=== PATIENT | female | born 1950 | race Caucasian/White ===

== ENCOUNTER 2017-11-10 11:25 | Outpatient (CLI) | payer MEDICARE, OTHER | END 2017-11-10 11:26 | disposition home or self-care (01) | LOC: BICMAMMO 11:25 | PROVIDERS: ATTEND Family Medicine | DX: Z12.31 Encounter for screening mammogram for malignant neoplasm of breast (principal) | CPT/HCPCS: 77063; 77067 ==

== ENCOUNTER 2018-03-06 20:00 | Outpatient (CLI) | payer MEDICARE, OTHER | END 2018-03-06 20:01 | disposition home or self-care (01) | LOC: SLEEPLAB 20:00 | PROVIDERS: ATTEND Family Medicine | DX: G47.33 Obstructive sleep apnea (adult) (pediatric) (principal); G47.52 REM sleep behavior disorder; R06.3 Periodic breathing; G25.81 Restless legs syndrome; G47.00 Insomnia, unspecified | CPT/HCPCS: 95810 ==

== ENCOUNTER 2018-07-11 10:19 | Outpatient (CLI) | payer MEDICARE ==
--- NOTE | 2018-07-11 13:04 | BD ---
BONE DENSITOMETRY USING DEXA: HISTORY: Postmenopausal screening for osteoporosis. FINDINGS: Lumbar Spine: BMD (g/cm2) L1 0.900 T-Score: -0.8 Z-Score: 0.8 L2 0.980 T-Score: -0.4 Z-Score: 1.4 L3 0.931 T-Score: -1.4 Z-Score: 0.5 L4 0.974 T-Score: -0.8 Z-Score: 1.2 L1-L4 0.947 T-Score: -0.9 Z-Score: 0.9 Femoral Neck: 0.609 T-Score: -2.2 Z-Score: -0.6 Total Femur: 0.702 T-Score: -2.0 Z-Score: -0.7 The 10-year fracture risk for a major osteoporotic fracture is 10% and for a hip fracture is 1.8%. Impression: Osteopenia. POS: [facility]
== END 2018-07-11 10:20 | disposition home or self-care (01) ==
LOC: BICMAMMO 10:19
PROVIDERS: ATTEND Family Medicine
DX: Z13.820 Encounter for screening for osteoporosis (principal); M85.89 Other specified disorders of bone density and structure, multiple sites
CPT/HCPCS: 77080

== ENCOUNTER 2018-09-05 06:45 | Outpatient (CLI) | payer MEDICARE ==
[2018-09-05 12:53] LABS: Hemoglobin 12.5 g/dL (12.0-16.0); Mean Corpuscular HGB CONC 32.5 g/dL (32.0-36.0); Mean Corpuscular Hemoglobin 31.3 pg (27.0-31.0); Mean Corpuscular Volume 96.4 fL (78.0-98.0); Mean Platelet Volume 7.3 fL (7.4-10.4); Platelet Count 227 thou/uL (130-400); Red Blood Cell (RBC) Count 3.98 mill/uL (4.20-5.40); White Blood Cell (WBC) Count 4.3 thou/uL (4.8-10.8)
[2018-09-05 13:12] LABS: Anion Gap 12 mmol/L (10-20); BUN (Urea Nitrogen) 18 mg/dL (9.8-20.1); Calc. Creatinine Clearance 0 mL/min (70-130); Carbon Dioxide 29 mmol/L (23-31); Chloride 105 mmol/L (98-107); Estimated GFR-MDRD 55; Glucose 103 mg/dL (80-115); Potassium 4.6 mmol/L (3.5-5.1); Sodium 141 mmol/L (136-145)
== END 2018-09-05 06:46 | disposition home or self-care (01) ==
LOC: LABBT 06:45
PROVIDERS: ATTEND Neurological Surgery
DX: Z01.818 Encounter for other preprocedural examination (principal)
CPT/HCPCS: 80048; 85027; 93005; 93010

== ENCOUNTER 2018-09-18 06:32 | Day surgery (SDC) | payer MEDICARE ==
[2018-09-05 12:05] VITALS: BMI 20.3
[2018-09-18] MEDS ORDERED: Scopolamine 1.5 mg/72 hour Patch ONE (06:58)
[2018-09-18] MEDS ORDERED: CEFAZOLIN 2 GM/50 ML BAG ONE (07:49)
[2018-09-18] MEDS ORDERED: KETAMINE 100 MG/ML (5ML VIAL) ONE (08:17)
[2018-09-18] MEDS ORDERED: Propofol 500 MG/50 ML VIAL ONE (08:17)
[2018-09-18] MEDS ORDERED: Fentanyl 100 MCG/2 ML VIAL ONE ×2 (08:23→10:16)
[2018-09-18] MEDS ORDERED: Midazolam HCl 2 mg/2 ml Vial ONE (08:33)
[2018-09-18] MEDS ORDERED: Promethazine HCl 25 MG/ML VIAL ONE (11:52)
[2018-09-18] MEDS ORDERED: Ondansetron PF 4 MG/2 ML Vial ONE ×2 (12:03→14:10)
[2018-09-18] MEDS ORDERED: Glycopyrrolate 0.2 MG/ML 5 ML SYRINGE ONE ×2 (14:10)
[2018-09-18] MEDS ORDERED: PROPOFOL 200 MG/20 ML VIAL ONE (14:10)
[2018-09-18] MEDS ORDERED: Ketorolac Tromethamine 30 MG/ML VIAL ONE (14:10)
[2018-09-18] MEDS ORDERED: Dexamethasone 20 MG/5 ML VIAL ONE (14:10)
[2018-09-18] MEDS ORDERED: Lidocaine 1% PF 5 ML VIAL ONE (14:10)
[2018-09-18] MEDS ORDERED: Rocuronium Bromide 10 MG/ML (10ML VIAL) ONE (14:10)
[2018-09-18] MEDS ORDERED: Metoclopramide HCl 10 MG/2 ML VIAL ONE (14:14)
[2018-09-18] MEDS ORDERED: traMADol HCl 50 MG TAB ONE (15:22)
--- NOTE | 2018-09-18 16:23 | OP ---
DATE OF PROCEDURE: 09/18/2018 DISEASE INTERVENTION SPECIALIST: Jennifer Rose PA-C PROCEDURE PERFORMED: L4-L5 laminectomy. DESCRIPTION OF PROCEDURE: The patient was brought to the operating room and intubated. She was rolled in a prone position on gel-filled chest rolls. An incision was made exposing L4-L5 and the level was confirmed by x-ray. We performed complete L5 and inferior L4 laminectomy. On the right, we found fairly extensive posterior facet and synovial debris and a bulging disk. These were debrided and a complete decompression was achieved. On the left, moderate facet arthropathy was decompressed. A complete decompression was achieved. The wound was extensively irrigated, maximum hemostasis was secured. Vancomycin powder was applied and then the wound was closed in anatomic layers. Job ID: [id number]
== END 2018-09-18 16:24 | disposition home or self-care (01) ==
LOC: SDC 06:32
PROVIDERS: ATTEND Neurological Surgery
PROC: 01NB0ZZ Release Lumbar Nerve, Open Approach (ICD-10-PCS; principal; 2018-09-18)
DX: M48.061 Spinal stenosis, lumbar region without neurogenic claudication (principal); M51.26 Other intervertebral disc displacement, lumbar region; M19.90 Unspecified osteoarthritis, unspecified site; F32.9 Major depressive disorder, single episode, unspecified; E78.00 Pure hypercholesterolemia, unspecified; G25.81 Restless legs syndrome; Z79.899 Other long term (current) drug therapy; Z88.5 Allergy status to narcotic agent; Z98.890 Other specified postprocedural states
CPT/HCPCS: 76000; J0131; J1100; J1885; J2001; J2250; J2405; J2550; J2704; J2765; J3010; J3370

== ENCOUNTER 2019-02-19 15:51 | Outpatient (CLI) | payer MEDICARE ==
[2019-02-19 16:21] LABS: #Basophils 0.1 thou/uL (0.0-0.2); #Eosinphils 0.2 thou/uL (0.0-0.7); #Lymphocytes 1.4 thou/uL (1.20-3.40); #Monocytes 0.5 thou/uL (0.11-0.59); #Neutrophils 6.2 thou/uL (1.40-6.50); %Eosinophils 2.1 % (0.0-10.0); %Lymphocytes 16.4 % (21.0-51.0); %Monocytes 6.4 % (0.0-10.0); %Neutrophils 74.2 % (42.0-75.0); Hemoglobin 13.4 g/dL (12.0-16.0); Mean Corpuscular HGB CONC 33.2 g/dL (32.0-36.0); Mean Corpuscular Volume 99.6 fL (78.0-98.0); Mean Platelet Volume 7.2 fL (7.4-10.4); Platelet Count 278 thou/uL (130-400); RBC Distribution Width 12.4 % (11.5-14.5); Red Blood Cell (RBC) Count 4.06 mill/uL (4.20-5.40); White Blood Cell (WBC) Count 8.3 thou/uL (4.8-10.8)
[2019-02-19 16:36] LABS: ALT (SGPT) 16 U/L (8-55); AST (SGOT) 19 U/L (5-34); Albumin 4.1 g/dL (3.4-4.8); Alkaline Phosphatase 120 U/L (40-150); Anion Gap 12 mmol/L (10-20); BUN (Urea Nitrogen) 19 mg/dL (9.8-20.1); Bilirubin, Total 0.4 mg/dL (0.2-1.2); Calc. Creatinine Clearance 0 mL/min (70-130); Calcium 9.6 mg/dL (7.8-10.44); Carbon Dioxide 31 mmol/L (23-31); Chloride 101 mmol/L (98-107); Estimated GFR-MDRD 60; Globulin 3.1 g/dL (2.4-3.5); Glucose 83 mg/dL (80-115); Potassium 4.6 mmol/L (3.5-5.1); Protein, Total 7.2 g/dL (6.0-8.3); Sodium 139 mmol/L (136-145)
--- NOTE | 2019-02-19 16:36 | RAD ---
PA AND LATERAL CHEST: INDICATIONS: History of preop clearance for surgery. COMPARISON: None. FINDINGS: The lungs are clear. The heart size is normal. No pleural effusion or pneumothorax is evident. The re is a wedge compression abnormality involving the suspected T12 vertebral level. This is of unknow n chronicity. IMPRESSION: 1. No acute cardiopulmonary abnormality. 2. Wedge compression abnormality suspected at the T12 vertebral level, of unknown chronicity. POS: [facility]
== END 2019-02-19 15:52 | disposition home or self-care (01) ==
LOC: SCSRAD 15:51
PROVIDERS: ATTEND Family Medicine
DX: Z01.818 Encounter for other preprocedural examination (principal)
CPT/HCPCS: 36415; 71046; 80053; 85025

== ENCOUNTER 2019-12-24 14:24 | Outpatient (CLI) | payer MEDICARE ==
--- NOTE | 2019-12-24 16:24 | MRI ---
MRI thoracic spine noncontrast: DATE: 12/24/2019 HISTORY: 69-year-old female with thoracic spine pain. COMPARISON: None FINDINGS: There is anterior wedge compression fracture deformity of T11. Maximum loss of height at anterior and mid portions approximately 75%. Minimal retropulsion of superior and inferior endplates technically qualifying this as a burst fracture. There is bone marrow edema involving the central and left portions of the vertebral body, but not the right side. The minimal bony retropulsion, plus broad-based disc-osteophytic bar complexes, encroach upon and indent the ventral aspect of the thecal sac at T10-11, causing mild to moderate central spinal canal stenosis at that level, and at T11-T12, causing mild central spinal canal stenosis at that level. There is no contact or impingement on the thoracic spinal cord. The lowest imaged level included is L1. Conus medullaris terminates caudal to L1. Location of conus medullaris is unknown without a lumbar spine MRI. The rest of the tho racic vertebral body heights are maintained, and have normal signal. There is no significant central spinal canal stenosis at any level. There is moderate bilateral neural foraminal stenosis at T10-11. No intramedullary signal abnormality. No syrinx. IMPRESSION: 1. Compression/burst fracture of T11. Some component of this is chronic, but bone marrow edema involv ing some of it indicates that there is some acute or subacute component of the fracture, which would explain the patient's pain. 2. No cord impingement
== END 2019-12-24 14:25 | disposition home or self-care (01) ==
LOC: TBSIIMAG 14:24
PROVIDERS: ATTEND Neurological Surgery
DX: M54.6 Pain in thoracic spine (principal); S22.011A Stable burst fracture of first thoracic vertebra, initial encounter for closed fracture; R60.0 Localized edema
CPT/HCPCS: 72146

== ENCOUNTER 2020-02-29 14:18 | Outpatient (CLI) | payer MEDICARE ==
--- NOTE | 2020-02-29 15:12 | BD ---
DEXA BONE DENSITOMETRY: (Dual energy x-ray absorptiometry) DATE: 02/29/2020 HISTORY: 69-year old white female for age-related, post-menopausal, osteoporosis screening. weight: 140 lbs height: 67 in. Age of menopause: 48 COMPARISON: 07/11/2018 FINDINGS: The bone mineral density (BMD) is given in grams per square centimeter (g/cm2): LUMBAR SPINE: BMD (g/cm^2) T score Z score L1: 0.897 -0.8 0.9 L2: 0.937 -0.8 1.1 L3: 0.891 -1.8 0.3 L4: 0.982 -0.7 1.4 Total: 0.929 -1.1 0.9 Change in BMD compared to previous DEXA: -1.9 %. HIP: BMD (g/cm^2) T score Z score Femoral neck: 0.665 -1.7 0.0 Total: 0.723 -1.8 -0.4 Change in BMD compared to previous DEXA: - 5.8 %. IMPRESSION: 1.) The mean bone mineral density of the lumbar spine is osteopenic. Fracture risk is increased. 2) The bone mineral density of the femoral neck is osteopenic. Fracture risk is increased.
== END 2020-02-29 14:19 | disposition home or self-care (01) ==
LOC: BICMAMMO 14:18
PROVIDERS: ATTEND Family Medicine
DX: M85.89 Other specified disorders of bone density and structure, multiple sites (principal); N95.1 Menopausal and female climacteric states
CPT/HCPCS: 77080

== ENCOUNTER 2020-05-09 11:40 | Outpatient (CLI) | payer MEDICARE, OTHER ==
[2020-05-10 14:49] LABS: SARS-CoV-2 MS2 Positive; SARS-CoV-2 N Gene Negative; SARS-CoV-2 S Gene Negative; SARS-CoV-2 by NAA Not Detected (NotDetected); SARS-CoV-2 orf1ab Negative
== END 2020-05-09 11:41 | disposition home or self-care (01) ==
LOC: LABSCS 11:40
PROVIDERS: ATTEND Internal Medicine Gastroenterology
DX: K30 Functional dyspepsia (principal); R14.0 Abdominal distension (gaseous); R68.81 Early satiety; Z20.828 Contact with and (suspected) exposure to other viral communicable diseases
CPT/HCPCS: 87635; U0003

== ENCOUNTER 2020-07-24 15:14 | Outpatient (CLI) | payer MEDICARE ==
--- NOTE | 2020-07-24 15:59 | RAD ---
EXAM: XR Thoracic Spine 2 View PROVIDED CLINICAL HISTORY: Thoracic spine pain. History of T11 compression fracture. COMPARISON: MRI thoracic spinal 01/16/2020 FINDINGS: A wedge-shaped compression fracture T11 vertebral body is again seen with degree of height loss overa ll similar to prior exam. There is now evidence of a wedge-shaped compression fracture involving the superior endplate of the T9 vertebral body which was not seen on study on 01/16/2020. Remaining ve rtebral body heights of the thoracic spine are within normal limits. There is exaggerated kyphosis of the thoracic spine due to the compression fractures. No subluxation is seen involving the thoracic spine. Scattered osteophytes are identified. IMPRESSION: 1. Indeterminate age wedge-shaped compression fracture T9 vertebral body with approximately 30% loss of height. This fracture was not seen on prior MRI examination of the thoracic spine on 01/16/2020. 2. Stable wedge-shaped compression fracture T11 vertebral body.
== END 2020-07-24 15:15 | disposition home or self-care (01) ==
LOC: BICRAD 15:14
PROVIDERS: ATTEND Neurological Surgery
DX: M54.6 Pain in thoracic spine (principal); S22.070A Wedge compression fracture of T9-T10 vertebra, initial encounter for closed fracture; S22.080A Wedge compression fracture of T11-T12 vertebra, initial encounter for closed fracture
CPT/HCPCS: 72070

== ENCOUNTER 2020-08-08 15:43 | Outpatient (CLI) | payer MEDICARE ==
--- NOTE | 2020-08-08 16:24 | RAD ---
CERVICAL SPINE FOUR VIEWS: 08/08/20 INDICATIONS: History of neck pain in a 69-year-old female. The patient states she is having pinching and sharp jose n in the lower neck that is progressively worsening. COMPARISON: None. FINDINGS: There are small marginal osteophytes involving the cervical vertebral body from C3 through C7. There is mild multilevel facet osteoarthrosis. Spinal alignment is normal. Prevertebral soft tissues are no rmal. Lateral masses are symmetric. Lung apices are clear. IMPRESSION: Mild cervical spondylosis. In light of the patient's symptomology, an MRI of the cervical spine may b e helpful for evaluating for neural foraminal or central canal narrowing. POS: [facility]
== END 2020-08-08 15:44 | disposition home or self-care (01) ==
LOC: BICRAD 15:43
PROVIDERS: ATTEND Family Medicine
DX: M54.2 Cervicalgia (principal); M47.812 Spondylosis without myelopathy or radiculopathy, cervical region
CPT/HCPCS: 72040

== ENCOUNTER 2020-12-09 13:23 | Outpatient (CLI) | payer MEDICARE | END 2020-12-09 13:24 | disposition home or self-care (01) | LOC: BICMAMMO 13:23 | PROVIDERS: ATTEND Family Medicine | DX: Z12.31 Encounter for screening mammogram for malignant neoplasm of breast (principal) | CPT/HCPCS: 77063; 77067 ==

== ENCOUNTER 2021-07-14 09:23 | Outpatient (CLI) | payer MEDICARE ==
[2021-07-14 11:14] LABS: #Eosinphils 0.2 thou/uL (0.0-0.7); #Lymphocytes 2.2 thou/uL (1.20-3.40); #Monocytes 0.4 thou/uL (0.11-0.59); #Neutrophils 2.5 thou/uL (1.40-6.50); %Basophils 0.9 % (0.0-1.0); %Eosinophils 3.8 % (0.0-10.0); %Lymphocytes 41.1 % (21.0-51.0); %Monocytes 7.7 % (0.0-10.0); %Neutrophils 46.6 % (42.0-75.0); Hemoglobin 13.8 g/dL (12.0-16.0); Mean Corpuscular HGB CONC 32.3 g/dL (32.0-36.0); Mean Corpuscular Hemoglobin 32.5 pg (27.0-31.0); Mean Platelet Volume 7.4 fL (7.4-10.4); Platelet Count 248 thou/uL (130-400); RBC Distribution Width 12.6 % (11.5-14.5); Red Blood Cell (RBC) Count 4.23 mill/uL (4.20-5.40); White Blood Cell (WBC) Count 5.3 thou/uL (4.8-10.8)
[2021-07-14 11:42] LABS: Bacteria/HPF None Seen HPF (None Seen); Bilirubin Negative (Negative); Blood, Urine 1+ (Negative); Clarity Clear (Clear); Glucose, Urine (Dipstick) Normal (Negative); Ketone, Urine Negative (Negative); Leukocyte Negative Leu/uL (Negative); Nitrite Negative (Negative); Protein, Urine (Dipstick) Negative (Neg-Trace); Specific Gravity, Urine 1.019 (1.002-1.036); Squamous Epithelial 0-3 HPF (0-3); Urobilinogen Normal mg/dL (Less than 2); WBC/HPF 0-3 HPF (0-3); pH, Urine 6.5 (5.0-9.0)
[2021-07-14 11:44] LABS: Urine Culture Reflex No No
[2021-07-14 11:55] LABS: ALT (SGPT) 18 U/L (8-55); AST (SGOT) 22 U/L (5-34); Albumin 4.4 g/dL (3.4-4.8); Alkaline Phosphatase 102 U/L (40-110); Anion Gap 13 mmol/L (10-20); BUN (Urea Nitrogen) 14 mg/dL (9.8-20.1); Bilirubin, Total 0.6 mg/dL (0.2-1.2); Calc. Creatinine Clearance 0 mL/min (70-130); Carbon Dioxide 30 mmol/L (23-31); Cardiac Risk 3.1 (Less than 4.5); Chloride 103 mmol/L (98-107); Cholesterol 258 mg/dl (< 200 Desired); Globulin 2.9 g/dL (2.4-3.5); Glucose 87 mg/dL (80-115); HDL Cholesterol 83 mg/dL (>60 Neg Risk); LDL Cholesterol, Calculated 160 mg/dL; Potassium 4.7 mmol/L (3.5-5.1); Protein, Total 7.3 g/dL (5.8-8.1); Sodium 141 mmol/L (136-145); Triglycerides 75 mg/dL (Less than 150)
[2021-07-14 12:08] LABS: Thyroid Stimulating Hormone 1.4778 uIU/mL (0.35-4.94); Vitamin D, 25 Hydroxy 53.3 ng/ml (> 30.0)
== END 2021-07-14 09:24 | disposition home or self-care (01) ==
LOC: SCSRAD 09:23
PROVIDERS: ATTEND Family Medicine
DX: R05.9 Cough, unspecified (principal); D80.1 Nonfamilial hypogammaglobulinemia; E55.9 Vitamin D deficiency, unspecified; K21.9 Gastro-esophageal reflux disease without esophagitis; F32.9 Major depressive disorder, single episode, unspecified; Z79.899 Other long term (current) drug therapy
CPT/HCPCS: 36415; 71046; 80053; 80061; 81001; 82306; 84443; 85025

== ENCOUNTER 2022-03-02 14:23 | Outpatient (CLI) | payer MEDICARE | END 2022-03-02 14:24 | disposition home or self-care (01) | LOC: BICMAMMO 14:23 | PROVIDERS: ATTEND Family Medicine | DX: Z13.820 Encounter for screening for osteoporosis (principal); N95.8 Other specified menopausal and perimenopausal disorders; M81.0 Age-related osteoporosis without current pathological fracture | CPT/HCPCS: 77080 ==

== ENCOUNTER 2022-03-16 15:08 | Outpatient (CLI) | payer MEDICARE | END 2022-03-16 15:09 | disposition home or self-care (01) | LOC: BICRAD 15:08 | PROVIDERS: ATTEND Neurological Surgery | DX: M54.50 Low back pain, unspecified (principal) | CPT/HCPCS: 72100 ==

== ENCOUNTER 2022-03-29 13:25 | Outpatient (CLI) | payer MEDICARE | END 2022-03-29 13:26 | disposition home or self-care (01) | LOC: BICMAMMO 13:25 | PROVIDERS: ATTEND Family Medicine | DX: Z12.31 Encounter for screening mammogram for malignant neoplasm of breast (principal); Z98.890 Other specified postprocedural states | CPT/HCPCS: 77063; 77067 ==

== ENCOUNTER 2024-01-03 11:42 | Outpatient (CLI) | payer MEDICARE | END 2024-01-03 11:43 | disposition home or self-care (01) | LOC: SCSRAD 11:42 | PROVIDERS: ATTEND Nurse Practitioner Family | DX: R50.9 Fever, unspecified (principal) | CPT/HCPCS: 71046 ==

== ENCOUNTER 2024-05-24 15:10 | Outpatient (CLI) | payer MEDICARE | END 2024-05-24 15:11 | disposition home or self-care (01) | LOC: BICRAD 15:10 | PROVIDERS: ATTEND Family Medicine | DX: M54.2 Cervicalgia (principal); M47.812 Spondylosis without myelopathy or radiculopathy, cervical region | CPT/HCPCS: 72052 ==

== ENCOUNTER 2024-07-11 12:37 | Outpatient (CLI) | payer MEDICARE | END 2024-07-11 12:38 | disposition home or self-care (01) | LOC: SCSMRI 12:37 | PROVIDERS: ATTEND Family Medicine | DX: M54.2 Cervicalgia (principal); M50.322 Other cervical disc degeneration at C5-C6 level; M47.812 Spondylosis without myelopathy or radiculopathy, cervical region; M48.02 Spinal stenosis, cervical region | CPT/HCPCS: 72141 ==